=== PATIENT | male | born 1950 | race Caucasian/White ===

== ENCOUNTER 2019-07-31 07:18 | Emergency (ER) | payer OTHER ==
[2019-07-31 07:47] LABS: Absolute Lymphocytes (CBC) 4.3 K/uL (0.7-4.9); Basophils % 0.8 % (0-1.3); Hematocrit 45.2 % (39.6-49.0); RBC Red Blood Cell Count 5.23 M/uL (4.33-5.43)
[2019-07-31] MEDS ORDERED: ONDANSETRON 4 MG/2 ML VIAL ONE (07:50)
[2019-07-31] MEDS ORDERED: MECLIZINE HCL 12.5 MG TAB ONE (07:50)
[2019-07-31 07:59] LABS: Protime INR 1.18
[2019-07-31 08:10] LABS: ALT/SGPT 26 U/L (12-78); AST/SGOT 17 U/L (15-37); Albumin 3.8 g/dL (3.4-5.0); Alkaline Phosphatase 65 U/L (45-117); BUN Blood Urea Nitrogen 17 mg/dL (7-18); Bicarbonate 31 mmol/L (21-32); Bilirubin Direct 0.2 mg/dL (0-0.2); Bilirubin Total 0.8 mg/dL (0.2-1.0); Glucose Level 156 mg/dL (74-106); Magnesium 2.1 mg/dL (1.8-2.4); NT PRO-BNP 44 pg/mL (<125); Potassium 3.9 mmol/L (3.5-5.1); Sodium Level 137 mmol/L (136-145); Troponin (Emerg Dept Use Only) < 0.02 ng/mL (0.0-0.045)
[2019-07-31 08:28] LABS: Blood Morphology Comment NOT SEEN (NOT SEEN); Platelet Estimate ADEQ
--- NOTE | 2019-07-31 08:57 | RAD REPORT ---
EXAM DESCRIPTION: CT - Head Brain Wo Cont - 07/31/2019 8:13 am CLINICAL HISTORY: DIZZINESS Headache, drowsiness, nausea COMPARISON: No comparisons TECHNIQUE: All CT scans are performed using dose optimization technique as appropriate and may inclu de automated exposure control or mA/KV adjustment according to patient size. FINDINGS: No intracranial hemorrhage, hydrocephalus or extra-axial fluid collection.Mild brain atrop hy.No areas of brain edema or evidence of midline shift. The paranasal sinuses and mastoids are clear. The calvarium is intact. IMPRESSION: No acute intracranial abnormality.
--- NOTE | 2019-07-31 09:30 | RAD REPORT ---
EXAM DESCRIPTION: RAD - Chest Single View - 07/31/2019 8:24 am CLINICAL HISTORY: DYSPNEA Chest pain. COMPARISON: CHEST PA AND LAT 2 VIEW dated 05/25/2011; CHEST PA AND LAT 2 VIEW dated 03/27/2008 FINDINGS: Portable technique limits examination quality. The lungs are grossly clear. The heart is mildly prominent size. No displaced fractures. IMPRESSION: No acute intrathoracic process suspected.
--- NOTE | 2019-07-31 09:43 | ER ---
Nurse's Notes [facility] Name: Cesar Watkins Jr Age: 69 yrs Sex: Male : 1950 Arrival Date: 07/31/2019 Time: 07:20 Bed 13 Private MD: Levar Caldwell T Diagnosis: Other peripheral vertigo, right ear Presentation: 07/31 07:28 Presenting complaint: Dizziness and nausea upon waking today. Last known normal was 9pm hb last night. VAN NEGATIVE. Transition of care: patient was not received from another setting of care. Onset of symptoms was July 31, 2019. Risk Assessment: Do you want to hurt yourself or someone else? Patient reports no desire to harm self or others. Initial Sepsis Screen: Does the patient meet any 2 criteria? No. Patient's initial sepsis screen is negative. Does the patient have a suspected source of infection? No. Patient's initial sepsis screen is negative. Care prior to arrival: None. 07:28 Method Of Arrival: Ambulatory hb 07:28 Acuity: TIFFANIE 3 hb Historical: - Allergies: 07:31 No Known Allergies; hb - Home Meds: 07:31 lisinopril 40 mg Oral tab 1 tab once daily [Active]; chlorthalidone Oral [Active]; hb rosuvastatin oral oral [Active]; - PMHx: 07:31 Hypertension; hb - PSHx: 07:31 None; hb - Immunization history:: Adult Immunizations up to date. - Coronavirus screen:: The patient has NOT traveled to [place], [place], or [place] in the past 14 days. The patient has NOT had contact with known/suspected case of Coronavirus? Proceed with normal triage procedures. - Social history:: Smoking status: Patient denies any tobacco usage or history of. - Ebola Screening: : No symptoms or risks identified at this time. Screenin:32 Abuse screen: Denies threats or abuse. Denies injuries from another. Nutritional hb screening: No deficits noted. Tuberculosis screening: No symptoms or risk factors identified. Fall Risk Total Benson Fall Scale indicates Low Risk Score (25-44 pts). Fall prevention measures have been instituted. Side Rails Up X 2 Frequent Obs/Assesments occuring As available Patient and Family Educated on Fall Prevention Program and strategies. Assessment: 07:33 General: Appears in no apparent distress. Behavior is calm, cooperative. Pain: Denies hb pain. Neuro: Level of Consciousness is awake, alert, obeys commands, Oriented to person, place, time, situation, Reports dizziness. Cardiovascular: Heart tones S1 S2 present Capillary refill < 3 seconds Patient's skin is warm and dry. Respiratory: Airway is patent Respiratory effort is even, unlabored, Respiratory pattern is regular, symmetrical, Breath sounds are clear bilaterally. GI: Abdomen is non-distended, Reports nausea. : No signs and/or symptoms were reported regarding the genitourinary system. EENT: No signs and/or symptoms were reported regarding the EENT system. Derm: Skin is pink, warm \T\ dry. Musculoskeletal: No signs and/or symptoms reported regarding the musculoskeletal system. 08:48 Reassessment: Patient appears in no apparent distress at this time. Patient and/or hb family updated on plan of care and expected duration. Pain level reassessed. Patient is alert, oriented x 3, equal unlabored respirations, skin warm/dry/pink. 09:40 Reassessment: Patient appears in no apparent distress at this time. Patient and/or hb family updated on plan of care and expected duration. Pain level reassessed. Patient is alert, oriented x 3, equal unlabored respirations, skin warm/dry/pink. Vital Signs: 07:31 BP 144 / 63; Pulse 49; Resp 16; Temp 97.2; Pulse Ox 96% on R/A; Weight 99.79 kg; Height hb 5 ft. 9 in. (175.26 cm); Pain 0/10; 08:14 BP 126 / 60; Pulse 47; Resp 16; Pulse Ox 98% on R/A; hb 09:40 BP 124 / 55; Pulse 49; Resp 13; Pulse Ox 95% on R/A; Pain 0/10; hb 07:31 Body Mass Index 32.49 (99.79 kg, 175.26 cm) NIH Stroke Scale Scores: 07:56 NIHSS Score: 0 [facility] ED Course: 07:20 Patient arrived in ED. mr 07:20 Levar Caldwell MD is Private Physician. mr 07:23 Rachel Field, RN is Primary Nurse. hb 07:26 [facility]ade [facility]. jr8 07:26 Chilo Caldwell MD is Attending Physician. jr8 07:30 Triage completed. hb 07:31 Arm band placed on. hb 07:32 Patient has correct armband on for positive identification. Bed in low position. Call light in reach. 07:59 Initial lab(s) drawn, by me, sent to lab. Inserted saline lock: 20 gauge in right 5 antecubital area, using aseptic technique. Blood collected. 08:00 quality assurance monitor body on. Pulse ox on. NIBP on. 5 08:00 EKG done, by ED staff, reviewed by Dawson MARQUEZ. 5 08:01 Basic Metabolic Panel Sent. mh5 08:01 LFT's Sent. mh5 08:01 Magnesium Sent. 5 08:01 NT PRO-BNP Sent. 5 08:01 PT-INR Sent. 5 08:02 Troponin (emerg Dept Use Only) Sent. mh5 08:12 CT Head Brain wo Cont In Process Unspecified. EDMS 08:25 XRAY Chest (1 view) In Process Unspecified. EDMS 09:42 Levar Caldwell MD is Referral Physician. jr8 10:05 No provider procedures requiring assistance completed. IV discontinued, intact, hb bleeding controlled, No redness/swelling at site. Pressure dressing applied. Administered Medications: 07:51 Drug: Zofran 4 mg Route: IVP; Site: right antecubital; hb 08:46 Follow up: Response: No adverse reaction hb 08:46 Drug: Meclizine 25 mg Route: PO; hb Point of Care Testing: Blood Glucose: 07:51 Blood Glucose: 175 mg/dL; hb Ranges: Outcome: 09:43 Discharge ordered by . jr8 10:05 Discharged to home ambulatory, with family. hb 10:05 Condition: stable 10:05 Discharge instructions given to patient, family, Instructed on discharge instructions, follow up and referral plans. medication usage, Demonstrated understanding of instructions, follow-up care, medications, Prescriptions given X 2. 10:06 Patient left the ED. hb NIH Stroke Scale - NIH Stroke Score Date: 07/31/2019 Time: 07:56 Total Score = 0 1a. Level of Consciousness (LOC) - 0(Alert) 1b. Level of Consciousness (LOC) (Year \T\ Age) - 0(Both) 1c. LOC Commands (Open \T\ Closes Eyes/User Interface Artist) - 0(Both) 2. Best Gaze (Lateral Gaze Paresis) - 0(Normal) 3. Visual Field Loss - 0(No visual loss) 4. Facial Palsy - 0(Normal) 5a. Left Arm: Motor (10-second hold) - 0(No drift) 5b. Right Arm: Motor (10-second hold) - 0(No drift) 6a. Left Leg: Motor (5-second hold - always test supine) - 0(No drift) 6b. Right Leg: Motor (5-second hold - always test supine) - 0(No drift) 7. Limb Ataxia (finger/nose \T\ heel/benson - test with eyes open) - 0(Absent) 8. Sensory Loss (pinprick arms/legs/face) - 0(Normal) 9. Best Language: Aphasia (description/naming/reading) - 0(No aphasia) 10. Dysarthria (speech clarity - read or repeat words) - 0(Normal) 11. Extinction and Inattention (visual/tactile/auditory/spatial/personal) - 0(No abnormality) Initials: jr8 Signatures: Dispatcher [employer] Madelyn Garzon Josh, PA PA jr8 Rachel Field, JANAE RN Gabrielle Ha [facility]
--- NOTE | 2019-07-31 09:43 | EDPHYS ---
Physician Documentation [facility] Name: Cesar Watkins Jr Age: 69 yrs Sex: Male : 1950 Arrival Date: 07/31/2019 Time: 07:20 Bed 13 Private MD: Levar Caldwell T ED Physician Chilo Caldwell HPI: 07/31 07:55 This 69 yrs old Male presents to ER via Ambulatory with complaints of jr8 Dizziness, Nausea. 07:56 The patient presents with dizziness, sense of spinning. Onset: The symptoms/episode jr8 began/occurred acutely, today, upon awaking. Context: occurred at home, occurred while the patient was asleep. Modifying factors: The symptoms are alleviated by holding head still, lying down, the symptoms are aggravated by movement of head, standing up, changing position. Associated signs and symptoms: Pertinent positives: nausea, vomiting. Severity of symptoms: At their worst the symptoms were moderate in the emergency department the symptoms are unchanged. Patient's baseline: Neuro: alert and fully oriented, Motor: no deficits, Ambulation: walks without assistance, Speech: normal. The patient has not experienced similar symptoms in the past. The patient has not recently seen a physician. Historical: - Allergies: 07:31 No Known Allergies; hb - Home Meds: 07:31 lisinopril 40 mg Oral tab 1 tab once daily [Active]; chlorthalidone Oral [Active]; hb rosuvastatin oral oral [Active]; - PMHx: 07:31 Hypertension; hb - PSHx: 07:31 None; hb - Immunization history:: Adult Immunizations up to date. - Coronavirus screen:: The patient has NOT traveled to [place], [place], or [place] in the past 14 days. The patient has NOT had contact with known/suspected case of Coronavirus? Proceed with normal triage procedures. - Social history:: Smoking status: Patient denies any tobacco usage or history of. - Ebola Screening: : No symptoms or risks identified at this time. ROS: 07:56 Constitutional: Negative for fever, chills, and weight loss. jr8 07:56 Abdomen/GI: Positive for nausea, vomiting, Negative for abdominal pain, diarrhea, constipation, abdominal cramps, abdominal distension. 07:56 Neuro: Positive for dizziness, Negative for altered mental status, headache, hearing loss, loss of consciousness, numbness, seizure activity, speech changes, syncope, near syncope, tingling, tinnitus, tremor, visual changes, weakness. 07:56 All other systems are negative. Exam: 07:56 Eyes: Pupils equal round and reactive to light, extra-ocular motions intact. Lids and jr8 lashes normal. Conjunctiva and sclera are non-icteric and not injected. Cornea within normal limits. Periorbital areas with no swelling, redness, or edema. ENT: Nares patent. No nasal discharge, no septal abnormalities noted. Tympanic membranes are normal and external auditory canals are clear. Oropharynx with no redness, swelling, or masses, exudates, or evidence of obstruction, uvula midline. Mucous membranes moist. Neck: Trachea midline, no thyromegaly or masses palpated, and no cervical lymphadenopathy. Supple, full range of motion without nuchal rigidity, or vertebral point tenderness. No Meningismus. Cardiovascular: Regular rate and rhythm with a normal S1 and S2. No gallops, murmurs, or rubs. Normal PMI, no JVD. No pulse deficits. Respiratory: Lungs have equal breath sounds bilaterally, clear to auscultation and percussion. No rales, rhonchi or wheezes noted. No increased work of breathing, no retractions or nasal flaring. Abdomen/GI: Soft, non-tender, with normal bowel sounds. No distension or tympany. No guarding or rebound. No evidence of tenderness throughout. Back: No spinal tenderness. No costovertebral tenderness. Full range of motion. Skin: Warm, dry with normal turgor. Normal color with no rashes, no lesions, and no evidence of cellulitis. MS/ Extremity: Pulses equal, no cyanosis. Neurovascular intact. Full, normal range of motion. 07:56 Neuro: Orientation: to person, place, time \T\ situation. Mentation: is normal, Memory: is normal, immediate memory is intact, recent memory is intact, remote memory is intact, Cranial nerves: CN I not tested, CN II- XII are normal as tested, visual montemayor are intact. extraocular movements are intact, Facial palsy and sensory deficits are absent. no gross hearing deficit,. right lateral nystagmus, Speech is clear and appropriate. Tongue strength is normal, Cerebellar function: normal finger to nose testing, heel to benson testing is normal, Motor: moves all fours, strength is 5/5 in all extremities, Sensation: no obvious gross deficits, seizure activity, is not displayed by the patient, Abnormal movements: there are no abnormal movements. 08:28 ECG was reviewed by the Attending Physician. kdr Vital Signs: 07:31 BP 144 / 63; Pulse 49; Resp 16; Temp 97.2; Pulse Ox 96% on R/A; Weight 99.79 kg; Height hb 5 ft. 9 in. (175.26 cm); Pain 0/10; 08:14 BP 126 / 60; Pulse 47; Resp 16; Pulse Ox 98% on R/A; hb 09:40 BP 124 / 55; Pulse 49; Resp 13; Pulse Ox 95% on R/A; Pain 0/10; hb 07:31 Body Mass Index 32.49 (99.79 kg, 175.26 cm) hb NIH Stroke Scale Scores: 07:56 NIHSS Score: 0 jr8 MDM: 07:32 Patient medically screened. jr8 09:39 Differential diagnosis: cardiac arrhythmia, CVA, hypovolemia, idiopathic dizziness, jr8 near-syncope, syncope, TIA, vertigo. Data reviewed: vital signs, nurses notes, lab test result(s), EKG, radiologic studies, CT scan, plain films. Data interpreted: Pulse oximetry: on room air is 98 %. Interpretation: normal. Counseling: I had a detailed discussion with the patient and/or guardian regarding: the historical points, exam findings, and any diagnostic results supporting the discharge/admit diagnosis, lab results, radiology results, the need for outpatient follow up, a family practitioner, to return to the emergency department if symptoms worsen or persist or if there are any questions or concerns that arise at home. Response to treatment: the patient's symptoms have markedly improved after treatment. ED course: Patient feeling much better with medication. Able to move more with medication. Patient had typical benign vertigo presentation on physical exam with absence of central findings. Recommend rest with plenty of fluids for next couple of days. If worse to return. Patient good with plan . 07/31 07:32 Order name: Basic Metabolic Panel; Complete Time: 08:14 8 07/31 07:32 Order name: CBC with Diff; Complete Time: 08:29 8 07/31 07:32 Order name: LFT's; Complete Time: 08:14 07/31 07:32 Order name: Magnesium; Complete Time: 08:14 07/31 07:32 Order name: NT PRO-BNP; Complete Time: 08:14 07/31 07:32 Order name: PT-INR; Complete Time: 08:08 07/31 07:32 Order name: Troponin (emerg Dept Use Only); Complete Time: 08:14 07/31 07:32 Order name: XRAY Chest (1 view); Complete Time: 09:35 07/31 07:32 Order name: EKG; Complete Time: 07:33 07/31 07:43 Order name: CT Head Brain wo Cont; Complete Time: 08:59 07/31 08:03 Order name: Glucose, Ancillary Testing; Complete Time: 08:08 EDMS 07/31 08:29 Order name: Manual Differential; Complete Time: 08:29 EDMS 07/31 07:32 Order name: Cardiac monitoring; Complete Time: 07:44 07/31 07:32 Order name: EKG - Nurse/Tech; Complete Time: :07/31 07:32 Order name: IV Saline Lock; Complete Time: :44 07/31 07:32 Order name: Labs collected and sent; Complete Time: :07/31 07:32 Order name: O2 Per Protocol; Complete Time: :07/31 07:32 Order name: O2 Sat Monitoring; Complete Time: :44 07/31 09:07 Order name: EKG Electrocardiogram EDMS EC:28 Rate is 48 beats/min. Rhythm is regular, Sinus bradycardia with No ectopy. QRS [place] is kdr Normal. [place] interval is normal. Clinical impression: NSR w/ Non-specific ST/T Changes and Sinus bradycardia. Administered Medications: 07:51 Drug: Zofran 4 mg Route: IVP; Site: right antecubital; hb 08:46 Follow up: Response: No adverse reaction hb 08:46 Drug: Meclizine 25 mg Route: PO; hb Point of Care Testing: Blood Glucose: 07:51 Blood Glucose: 175 mg/dL; hb Ranges: Critical Glucose Levels:Adult <50 mg/dl or >400 mg/dl <40 mg/dl or >180 mg/dl Disposition: 16:47 Co-signature as Attending Physician, Chilo Caldwell MD I agree with the assessment and kdr plan of care. Disposition: 07/31/19 09:43 Discharged to Home. Impression: Other peripheral vertigo, right ear. - Condition is Stable. - Discharge Instructions: Benign Positional Vertigo. - Prescriptions for Meclizine 25 mg Oral Tablet - take 1 tablet by ORAL route every 8 hours As needed; 30 tablet. Zofran 4 mg Oral Tablet - take 1 tablet by ORAL route every 8 hours As needed; 20 tablet. - Medication Reconciliation Form, Thank You Letter, Antibiotic Education, Prescription Opioid Use form. - Follow up: Levar Caldwell MD; When: 2 - 3 days; Reason: Recheck today's complaints, Continuance of care, Re-evaluation by your physician. - Problem is new. - Symptoms have improved. NIH Stroke Scale - NIH Stroke Score Date: 07/31/2019 Time: 07:56 Total Score = 0 1a. Level of Consciousness (LOC) - 0(Alert) 1b. Level of Consciousness (LOC) (Year \T\ Age) - 0(Both) 1c. LOC Commands (Open \T\ Closes Eyes/Retail Management Trainee) - 0(Both) 2. Best Gaze (Lateral Gaze Paresis) - 0(Normal) 3. Visual Field Loss - 0(No visual loss) 4. Facial Palsy - 0(Normal) 5a. Left Arm: Motor (10-second hold) - 0(No drift) 5b. Right Arm: Motor (10-second hold) - 0(No drift) 6a. Left Leg: Motor (5-second hold - always test supine) - 0(No drift) 6b. Right Leg: Motor (5-second hold - always test supine) - 0(No drift) 7. Limb Ataxia (finger/nose \T\ heel/benson - test with eyes open) - 0(Absent) 8. Sensory Loss (pinprick arms/legs/face) - 0(Normal) 9. Best Language: Aphasia (description/naming/reading) - 0(No aphasia) 10. Dysarthria (speech clarity - read or repeat words) - 0(Normal) 11. Extinction and Inattention (visual/tactile/auditory/spatial/personal) - 0(No abnormality) Initials: jr8 Signatures: Dispatcher [employer] EDMS Chilo Caldwell, MD MD kdr Dawson Cade PA PA jr8 Rachel Field, RN RN hb Corrections: (The following items were deleted from the chart) 10:06 09:43 07/31/2019 09:43 Discharged to Home. Impression: Other peripheral hb vertigo, right ear. Condition is Stable. Forms are Medication Reconciliation Form, Thank You Letter, Antibiotic Education, Prescription Opioid Use. Follow up: Levar Caldwell; When: 2 - 3 days; Reason: Recheck today's complaints, Continuance of care, Re-evaluation by your physician. Problem is new. Symptoms have improved. jr8
[2019-07-31 10:12] VITALS: TEMP 97.2
[2019-07-31 10:15] VITALS: BP 124/55; O2SAT 95
--- NOTE | 2019-07-31 15:55 | EKG ---
Test Date: 2019-07-31 Test Time: 07:51:07 Wreath Maker: JOYCE MEASUREMENT RESULTS: Intervals: Rate: 48 WV: 154 QRSD: 86 QT: 468 QTc: 418 [place]: P: 68 WV: 154 QRS: 51 T: 121 INTERPRETIVE STATEMENTS: Marked sinus bradycardia Possible Left atrial enlargement Septal infarct, age undetermined T wave abnormality, consider lateral ischemia Abnormal ECG Compared to ECG 03/27/2008 12:22:37 T-wave abnormality now present ST (T wave) deviation no longer present Myocardial infarct finding still present Possible ischemia still present Electronically Signed On 07-31-19 15:51:56 BAND TEACHER by Collin Velazquez
--- NOTE | 2019-07-31 15:55 | EKG ---
Test Date: 2019-07-31 Test Time: 07:51:34 Metal Furniture Assembly Supervisor: JOYCE MEASUREMENT RESULTS: Intervals: Rate: 48 FL: 160 QRSD: 86 QT: 446 QTc: 398 [place]: P: 71 FL: 160 QRS: 48 T: 97 INTERPRETIVE STATEMENTS: Marked sinus bradycardia Septal infarct, age undetermined T wave abnormality, consider lateral ischemia Abnormal ECG Compared to ECG 07/31/2019 07:51:07 No significant changes Electronically Signed On 07-31-19 15:51:55 ARMED SECURITY GUARD by Collin Velazquez
== END 2019-07-31 10:06 | disposition home or self-care (01) ==
LOC: ER 07:18
DX: H81.391 Other peripheral vertigo, right ear (principal); I10 Essential (primary) hypertension
CPT/HCPCS: 93005 ×2; 85025; 80048; 36415; 83735; 85610; 82947; 80076; 84484; 83880; 70450; 71045; 96374; 99285; J2405; J8597

== ENCOUNTER 2021-05-10 19:52 | Emergency (ER) | payer OTHER ==
[2021-05-10 20:21] LABS: Absolute Lymphocytes (CBC) 5.1 K/uL (0.7-4.9); Hematocrit 50.7 % (39.6-49.0); Lymphocytes % 15.5 % (15.3-44.8); MPV 10.5 fL (7.6-11.3)
[2021-05-10 20:30] LABS: Protime INR 1.23
[2021-05-10] MEDS ORDERED: CEFTRIAXONE 1000 MG/VIAL ONE (20:38)
[2021-05-10 20:46] LABS: ALT/SGPT 31 U/L (12-78); AST/SGOT 17 U/L (15-37); Albumin 4.1 g/dL (3.4-5.0); Alkaline Phosphatase 82 U/L (45-117); BUN Blood Urea Nitrogen 61 mg/dL (7-18); Bicarbonate 15 mmol/L (21-32); Bilirubin Direct 0.5 mg/dL (0-0.2); Bilirubin Total 1.2 mg/dL (0.2-1.0); Glucose Level 1539 mg/dL (74-106); Magnesium 3.3 mg/dL (1.8-2.4); NT PRO-BNP 643 pg/mL (<125); Potassium 5.1 mmol/L (3.5-5.1); Protein, Total 7.4 g/dL (6.4-8.2); Sodium Level 122 mmol/L (136-145); Troponin (Emerg Dept Use Only) < 0.02 ng/mL (0.0-0.045)
[2021-05-10 20:56] LABS: Blood Morphology Comment NOT SEEN (NOT SEEN); Platelet Estimate ADEQ
[2021-05-10] MEDS ORDERED: INSULIN -REGULAR HUMAN 50 UNIT/0.5 ML ML ONE ×2 (21:06→21:51)
--- NOTE | 2021-05-10 21:08 | RAD REPORT ---
EXAM DESCRIPTION: [place] Single View05/10/2021 8:58 pm CLINICAL HISTORY: Weakness COMPARISON: 2019 FINDINGS: The lungs appear clear of acute infiltrate. The heart is normal size IMPRESSION: No acute abnormalities displayed
[2021-05-10 21:13] LABS: Urine Blood 3+ (Negative); Urine Glucose 2+ (Negative); Urine Protein Negative (Negative); Urine pH 5.5 (5.0-7.0)
--- NOTE | 2021-05-10 21:45 | RAD REPORT ---
EXAM DESCRIPTION: CT - Head C Spine Cap Wo Con - 05/10/2021 9:23 pm TECHNIQUE: Computed axial tomography of the head and cervical spine was obtained. Coronal and sagitt al reconstruction was performed Computed axial tomography of the chest, abdomen and pelvis was obtained. Contrast was not requested. All CT scans are performed using dose optimization technique as appropriate and may include automated exposure control or mA/KV adjustment according to patient size. CLINICAL HISTORY: Head and neck injury with chest and abdominal pain status post fall COMPARISON: CT head 2019 FINDINGS: An intracranial bleed is not seen. The ventricles are normal in caliber. An extra-axial fluid collection is not noted. . Fluid within the sinuses/mastoids is not seen. A cervical fracture is not seen. No dislocation is noted. The evaluation of mediastinum, akira, vessels, solid organs and bowel are limited secondary to the lac k of contrast administration. A mediastinal hematoma is not noted. A pleural effusion is not seen. A lung contusion is not present. The liver,spleen, pancreas, adrenals,kidneys and bladder do not demonstrate intrahepatic injury. 9 centimeter cystic mass abuts the left lobe of the liver. Additional small hepatic and renal cystic masses. . Small inguinal hernias IMPRESSION: 1. No acute intracranial abnormality is seen. 2. A cervical fracture is not visualized. If the patient continues have symptoms to suggest intracran ial/spinal cord pathology MRI be recommended 3. No traumatic abnormality involving the chest/abdomen/pelvis. 4. 9 centimeter cystic mass abuts the left lobe of the liver. Ultrasound is recommended
[2021-05-10 21:48] LABS: Blood O2 Saturation 92.6 % (92-98.5)
[2021-05-10 21:49] LABS: Arterial Blood Carboxyhemoglob 1.3 % (0-1.5); Blood Gas Oxyhemoglobin 90.2 % (94-97)
[2021-05-10] MEDS ORDERED: NA CHLORIDE 0.9% 100 ML ONE (21:52)
--- NOTE | 2021-05-10 22:02 | ER ---
Nurse's Notes [facility] Name: Cesar Watkins Jr Age: 70 yrs Sex: Male : 1950 Arrival Date: 05/10/2021 Time: 19:57 Bed 20 Private MD: Diagnosis: Diabetic ketoacidosis;Acute kidney injury Presentation: 05/10 20:11 Chief complaint: EMS states: called out for fall and generalized weakness, on scene pt em was orthostatic positive and BGL read HIGH, pt also reports falling and hitting head, was given 400 mL NS on scene, initiated 20 G RAC, BGL read HIGH on arrival. Coronavirus screen: Client denies travel out of the [place] in the last 14 days. Ebola Screen: Patient negative for fever greater than or equal to 101.5 degrees Fahrenheit, and additional compatible Ebola Virus Disease symptoms Patient denies exposure to infectious person. Patient denies travel to an Ebola-affected area in the 21 days before illness onset. No symptoms or risks identified at this time. Initial Sepsis Screen: Does the patient meet any 2 criteria? No. Patient's initial sepsis screen is negative. Does the patient have a suspected source of infection? No. Patient's initial sepsis screen is negative. Risk Assessment: Do you want to hurt yourself or someone else? Patient reports no desire to harm self or others. Onset of symptoms was May 10, 2021. 20:11 Method Of Arrival: EMS: [facility] em 20:11 Acuity: TIFFANIE 3 em Historical: - Allergies: 20:17 No Known Allergies; em - Home Meds: 20:16 rosuvastatin Oral [Active]; lisinopril 40 mg Oral tab 1 tab once daily [Active]; em Chlorthalidone Oral [Active]; - PMHx: 20:16 Hypertension; em - PSHx: 20:16 None; em - Immunization history:: Adult Immunizations up to date, Client reports receiving the 2nd dose of the Covid vaccine. - Social history:: Smoking status: Patient denies any tobacco usage or history of. Screenin:11 Abuse screen: Denies threats or abuse. Nutritional screening: No deficits noted. em Tuberculosis screening: No symptoms or risk factors identified. Fall Risk Fall in past 12 months (25 points). IV access (20 points). Ambulatory Aid- Crutches/Cane/Walker (15 pts). Total Benson Fall Scale indicates High Risk Score (45 or more points). Side Rails Up X 2 Placed Close to Nursing Station Frequent Obs/Assessments Occuring Family Present and informed to notify staff if the need to leave the bedside. Assessment: 21:07 General: Appears in no apparent distress. comfortable, well groomed, well developed, em well nourished, Behavior is calm, cooperative, quiet. Pain: Complains of pain in abdomen Pain currently is 3 out of 10 on a pain scale. Neuro: Level of Consciousness is awake, alert, obeys commands, Oriented to person, place, time, situation, Transportation Aid are equal bilaterally Full function Speech is normal. Cardiovascular: Capillary refill < 3 seconds Patient's skin is warm and dry. Rhythm is sinus rhythm. Respiratory: Airway is patent Respiratory effort is even, unlabored, Respiratory pattern is regular, symmetrical. GI: Reports nausea. Derm: Skin is intact, is healthy with good turgor, Skin is pink, warm \\T\\ dry. Musculoskeletal: Capillary refill < 3 seconds, Range of motion: intact in all extremities. 21:10 Reassessment: Patient appears in no apparent distress at this time. No changes from previously documented assessment. Patient is alert, oriented x 3, equal unlabored respirations, skin warm/dry/pink. 22:25 Reassessment: report given to JANAE Garcia at [facility], pending EMS transportation. em 23:03 Reassessment: report given to [facility] Juvenile Justice Officer, will transport pt to [facility], pt resting comfortably with eyes closed, respirations even and unlabored, skin pink warm and dry. Vital Signs: 20:11 BP 117 / 43; Pulse 90; Resp 18; Temp 97.8(A); Pulse Ox 100% on R/A; Weight 96.16 kg; em Height 5 ft. 9 in. (175.26 cm); 21:24 BP 121 / 48; Pulse 81; Resp 16; Pulse Ox 99% on R/A; em 22:24 BP 115 / 45; Pulse 81; Resp 20; Temp 97.9; Pulse Ox 97% on R/A; em 23:05 BP 126 / 56; Pulse 81; Resp 16; Pulse Ox 97% on R/A; em 20:11 Body Mass Index 31.31 (96.16 kg, 175.26 cm) em ED Course: 19:57 Patient arrived in ED. tt3 19:57 Luis Enrique Dial PA is PHCP. [facility] 19:57 Mario Browning MD is Attending Physician. jmm 20:11 Patient has correct armband on for positive identification. Bed in low position. Call em light in reach. Side rails up X2. Adult w/ patient. desk monitor on. Pulse ox on. NIBP on. 20:11 Maintain EMS IV. Dressing intact. Good blood return noted. Site clean \\T\\ dry. Gauge \\T\\ em site: 20 RAC. 20:16 Triage completed. em 20:16 Arm band placed on. em 20:58 XRAY Chest (1 view) In Process Unspecified. EDMS 21:10 Shawn Jerome, RN is Primary Nurse. em 21:15 SARS-COV-2 RT PCR (Document "Date of Onset" if Symptomatic) Sent. oe 21:23 CT Traumagram (Head C Spine CAP wo con) In Process Unspecified. EDMS 21:41 Initiated transfer at [facility] with Merari Ross. Stated she would do a capacity check tt3 and call back. 21:49 Merari called back with their physician to speak with JIMMY Peterson, pt provider tt3 regarding the transfer request. 21:56 Merari Cody gave admin approval. The pt is going to [facility]. tt3 The accepting physician is Dr. Garcia. Nurse to call report to . Face sheet to be faxed to per Merari's request. 22:10 Repeat lab(s) drawn. by ms, sent to lab. Inserted saline lock: 22 gauge in left em antecubital area, using aseptic technique. Blood collected. 23:03 No provider procedures requiring assistance completed. Patient transferred, IV remains em in place. Administered Medications: 20:19 Drug: NS 0.9% 1000 ml Route: IV; Rate: 1 bolus; Site: right antecubital; em 21:02 Follow up: IV Status: Completed infusion; IV Intake: 1000ml em 20:56 Drug: Rocephin (cefTRIAXone) 2 grams Route: IV; Rate: calculated rate; Site: right em antecubital; 21:11 Follow up: Response: No adverse reaction; IV Status: Completed infusion em 21:10 Drug: Insulin Regular Human 10 units {Co-Signature: vg1 (Beata Nichols RN).} Route: em IVP; Site: right antecubital; 22:13 Follow up: Response: No adverse reaction em 21:58 Drug: Insulin Drip - (Insulin Regular Human 100 units, NS 0.9% 100 ml) {Co-Signature: em mw (Elisha Gonzalez RN).} Route: IV; Rate: calculated rate; Site: right antecubital; 23:02 Follow up: IV Status: Infusion continued upon transfer; IV Intake: 7ml em 22:39 Drug: NS 0.9% 1000 ml Route: IV; Rate: 1 bolus; Site: left antecubital; em 23:02 Follow up: IV Status: Infusion continued upon transfer; IV Intake: 400ml em Intake: 21:02 IV: 1000ml; Total: 1000ml. em 23:02 IV: 7ml; Total: 1007ml. em 23:02 IV: 400ml; Total: 1407ml. em Output: 22:10 Urine: 400ml (Voided); Total: 400ml. em Outcome: 22:00 ER care complete, transfer ordered by . artis 23:04 Transferred by ground EMS to [facility], Transfer form em completed. X-rays sent w/ patient. 23:04 Condition: stable 23:04 Instructed on the need for transfer, Demonstrated understanding of instructions. 23:09 Patient left the ED. em Signatures: Dispatcher [employer] EDLuis Enrique Johns PA PA jmm Munoz, Edgar, RN RN em Kev Renteria Tyler tt3 Beata Nichols RN vg1 Elisha Gonzalez RN mw
--- NOTE | 2021-05-10 22:02 | EDPHYS ---
Physician Documentation [facility] Name: Cesar Watkins Jr Age: 70 yrs Sex: Male : 1950 Arrival Date: 05/10/2021 Time: 19:57 Bed 20 Private MD: ED Physician Mario Browning HPI: 05/10 21:57 This 70 yrs old Male presents to ER via EMS with complaints of vomiting, fall.jmm 21:57 The patient presents to the emergency department with nausea, vomiting. Onset: The jmm symptoms/episode began/occurred gradually, 1 week(s) ago. Possible causes: unknown. The symptoms are aggravated by nothing. The symptoms are alleviated by nothing. This is a 70-year-old male with history of hypertension the presents emerged department with complaints of dry mouth beginning approximately 1 week ago with generalized weakness soon after and multiple episodes of vomiting over the past few days. Patient denies chest pain, abdominal pain, diarrhea.. Historical: - Allergies: 20:17 No Known Allergies; em - Home Meds: 20:16 rosuvastatin Oral [Active]; lisinopril 40 mg Oral tab 1 tab once daily [Active]; em Chlorthalidone Oral [Active]; - PMHx: 20:16 Hypertension; em - PSHx: 20:16 None; em - Immunization history:: Adult Immunizations up to date, Client reports receiving the 2nd dose of the Covid vaccine. - Social history:: Smoking status: Patient denies any tobacco usage or history of. ROS: 21:57 Cardiovascular: Negative for chest pain, palpitations, and edema, Respiratory: Negative jmm for shortness of breath, cough, wheezing, and pleuritic chest pain. 21:57 Constitutional: Positive for fatigue. 21:57 Abdomen/GI: Positive for vomiting. 21:57 All other systems are negative. Exam: 21:57 Head/Face: atraumatic. Eyes: EOMI, no conjunctival erythema appreciated ENT: Moist jmm Mucus Membranes Neck: Trachea midline, Supple Chest/axilla: Normal chest wall appearance and motion. Cardiovascular: Regular rate and rhythm. No edema appreciated Respiratory: Normal respirations, no respiratory distress appreciated 21:57 Skin: General appearance color normal 21:57 Constitutional: The patient appears alert, awake, uncomfortable. 21:57 Abdomen/GI: Inspection: abdomen appears normal, Bowel sounds: normal, Palpation: soft, nontender, in all quadrants. 21:57 Musculoskeletal/extremity: ROM: intact in all extremities. 21:57 Skin: Appearance: Color: normal in color. 21:57 Neuro: Motor: is normal. 21:57 Psych: Behavior/mood is pleasant, cooperative. Vital Signs: 20:11 BP 117 / 43; Pulse 90; Resp 18; Temp 97.8(A); Pulse Ox 100% on R/A; Weight 96.16 kg; em Height 5 ft. 9 in. (175.26 cm); 21:24 BP 121 / 48; Pulse 81; Resp 16; Pulse Ox 99% on R/A; em 22:24 BP 115 / 45; Pulse 81; Resp 20; Temp 97.9; Pulse Ox 97% on R/A; em 23:05 BP 126 / 56; Pulse 81; Resp 16; Pulse Ox 97% on R/A; em 20:11 Body Mass Index 31.31 (96.16 kg, 175.26 cm) em MDM: 19:57 Patient medically screened. [facility] 21:59 Data reviewed: vital signs, nurses notes. Counseling: I had a detailed discussion with [facility] the patient and/or guardian regarding: the historical points, exam findings, and any diagnostic results supporting the discharge/admit diagnosis, lab results, radiology results, the need to transfer to another facility. ED course: Patient has a request for [facility]. I discussed the patient with Dr. Garcia whom accepted the patient. 05/10 19:58 Order name: Basic Metabolic Panel [facility] 05/10 19:58 Order name: CBC with Diff [facility] 05/10 19:58 Order name: LFT's [facility] 05/10 19:58 Order name: Magnesium; Complete Time: 21:02 [facility] 05/10 19:58 Order name: NT PRO-BNP; Complete Time: 21:02 [facility] 05/10 19:58 Order name: PT-INR; Complete Time: 20:47 [facility] 05/10 19:58 Order name: Troponin (emerg Dept Use Only); Complete Time: 21:02 [facility] 05/10 19:58 Order name: ABG; Complete Time: 21:50 [facility] 05/10 19:58 Order name: Basic Metabolic Panel; Complete Time: 21:02 [facility] 05/10 19:58 Order name: CBC with Automated Diff; Complete Time: 21:02 [facility] 05/10 19:58 Order name: Liver (Hepatic) Function; Complete Time: 21:02 [facility] 05/10 20:14 Order name: Glucose, Ancillary Testing; Complete Time: 20:28 [facility] 05/10 20:25 Order name: Procalcitonin; Complete Time: 20:54 [facility] 05/10 19:58 Order name: XRAY Chest (1 view); Complete Time: 21:12 [facility] 05/10 19:58 Order name: EKG; Complete Time: 19:59 [facility] 05/10 19:58 Order name: Cardiac monitoring; Complete Time: 20:18 [facility] 05/10 20:25 Order name: Lactate; Complete Time: 21:21 [facility] 05/10 20:25 Order name: Blood Culture Adult (2) [facility] 05/10 20:25 Order name: Manual Differential; Complete Time: 21:02 [facility] 05/10 20:29 Order name: SARS-COV-2 RT PCR (Document "Date of Onset" if Symptomatic) [facility] 05/10 20:29 Order name: SARS-COV-2 RT PCR; Complete Time: 22:01 [facility] 05/10 21:05 Order name: CT Traumagram (Head C Spine CAP wo con); Complete Time: 21:48 [facility] 05/10 21:13 Order name: Urine Dipstick-Ancillary [facility] 05/10 22:09 Order name: Glucose; Complete Time: 23:02 05/10 19:58 Order name: EKG - Nurse/Tech; Complete Time: 20:18 [facility] 05/10 19:58 Order name: IV Saline Lock; Complete Time: 20:18 [facility] 05/10 19:58 Order name: Labs collected and sent; Complete Time: 20:18 [facility] 05/10 19:58 Order name: O2 Per Protocol; Complete Time: 20:18 [facility] 05/10 19:58 Order name: O2 Sat Monitoring; Complete Time: 20:18 [facility] 05/10 19:58 Order name: Urine Dipstick-Ancillary (obtain specimen); Complete Time: 21:14 [facility] Administered Medications: 20:19 Drug: NS 0.9% 1000 ml Route: IV; Rate: 1 bolus; Site: right antecubital; em 21:02 Follow up: IV Status: Completed infusion; IV Intake: 1000ml em 20:56 Drug: Rocephin (cefTRIAXone) 2 grams Route: IV; Rate: calculated rate; Site: right em antecubital; 21:11 Follow up: Response: No adverse reaction; IV Status: Completed infusion em 21:10 Drug: Insulin Regular Human 10 units {Co-Signature: vg1 (Beata Nichols RN).} Route: em IVP; Site: right antecubital; 22:13 Follow up: Response: No adverse reaction em 21:58 Drug: Insulin Drip - (Insulin Regular Human 100 units, NS 0.9% 100 ml) {Co-Signature: em mw (Elisha Gonzalez RN).} Route: IV; Rate: calculated rate; Site: right antecubital; 23:02 Follow up: IV Status: Infusion continued upon transfer; IV Intake: 7ml em 22:39 Drug: NS 0.9% 1000 ml Route: IV; Rate: 1 bolus; Site: left antecubital; em 23:02 Follow up: IV Status: Infusion continued upon transfer; IV Intake: 400ml em Disposition: 05/11 01:15 Co-signature as Attending Physician, Mario Browning MD. mh7 Disposition Summary: 05/10/21 22:00 Transfer Ordered Transfer Location: [facility] Reason: Higher level of care jm Condition: Stable jm Problem: new jmm Symptoms: are unchanged jmm Accepting Physician: Dr. Garcia(05/10/21 23:09) em Diagnosis - Diabetic ketoacidosis jmm - Acute kidney injury [facility] Forms: - Medication Reconciliation Form jmm - SBAR form [facility] Signatures: Dispatcher [employer] EDMS Luis Enrique Dial PA PA jmm Shawn Jerome, RN RN em Mario Browning MD MD mh7 Beata Nichols RN vg1 Elisha Gonzalez RN mw Corrections: (The following items were deleted from the chart) 05/10 21:15 19:59 SARS-COV-2 RT PCR+[id number].[id number] ordered. EDMS EDMS 22:01 22:00 Dr. Jose wisdom jenn 23:09 22:01 Dr. Jose wisdom em
[2021-05-10] MEDS ORDERED: NA CHLORIDE 0.9% 1,000 ML ONE (22:36)
[2021-05-10 23:17] VITALS: TEMP 97.9; O2SAT 97
[2021-05-10 23:18] VITALS: BP 126/56
--- NOTE | 2021-05-11 18:25 | EKG ---
Test Date: 2021-05-10 Test Time: 20:13:19 Engineer Steam: RAFAEL MEASUREMENT RESULTS: Intervals: Rate: 82 AK: 134 QRSD: 90 QT: 444 QTc: 518 [place]: P: 55 AK: 134 QRS: 56 T: 72 INTERPRETIVE STATEMENTS: Normal sinus rhythm with sinus arrhythmia Marked ST abnormality, possible inferior subendocardial injury Prolonged QT Abnormal ECG Compared to ECG 07/31/2019 07:51:34 ST (T wave) deviation now present Prolonged QT interval now present Sinus bradycardia no longer present Myocardial infarct finding no longer present T-wave abnormality no longer present Possible ischemia no longer present Electronically Signed On 05-11-21 18:23:31 SAT INSTRUCTOR by Collin Velazquez
--- OUTSIDE RECORDS SUMMARY | 2021-05-16 15:59 | XMS REPORT | Continuity of Care Document ---
:1950 Author Organization [facility] t Address [address] [place] [address] Care Team Providers Name Role Phone MARVIN BURGOS Primary Care Physician Unavailable DURGA Attending Clinician Unavailable Kalen BOLDEN Attending Clinician Unavailable Only, Test Attending Clinician Unavailable Bo VICTOR Attending Clinician BO Attending Clinician Unavailable CELESTINE Admitting Clinician Unavailable Payers Payer Name Policy Type Policy Number Effective Date Expiration Date S carmenza [employer] MANAGED [id number] 2020 MEDICARE PPO-AJ 00:00:00 Problems This patient has no known problems. Allergies, Adverse Reactions, Alerts Allergy Allergy Status Severity Reaction(s) Onset Inactive Treating Comm ents Source Name Type Date Date Clinician NO KNOWN Drug [facility] Social History Social Habit Start Date Stop Date Quantity Comments Source [facility] to SARS-CoV-2 [facility] sure [facility] [place] [facility] Smoking Status Start Date Stop Date Source Unknown if ever smoked [facility] Medications This patient has no known medications. Procedures This patient has no known procedures. Encounters Start End Encounter Admission Attending Care Care Encounter Source Date/Time Date/Time Type Type Clinicians Facility Department ID 2021-05-11 Inpatient U DURGA [facility] [id number] [facility] 00:16:00 TANIA [facility] 2020-10-09 2020-10-09 Outpatient Miguel BOLDEN [facility] [id number] Univers 13:30:00 13:30:00 VITO [facility] 2020-09-17 2020-09-17 Outpatient Miguel BOLDEN [facility] [id number] Univers 13:30:00 13:30:00 [facility] 2020-06-11 2020-06-11 Laboratory Only, Adc Test [facility] [id number] Univers 13:07:45 13:22:45 Only Arsalan Gill [id number] roshni [facility] [id number] [facility] [id number] [address] 2020-06-11 2020-06-11 Outpatient R BO [facility] [id number] [facility] 13:15:00 13:15:00 ARSALAN barakat [facility] Results This patient has no known results.
== END 2021-05-10 23:09 | disposition short-term general hospital (02) ==
LOC: ER 19:52
DX: E11.10 Type 2 diabetes mellitus with ketoacidosis without coma (principal); N17.9 Acute kidney failure, unspecified; I10 Essential (primary) hypertension; Z20.822 Contact with and (suspected) exposure to COVID-19
CPT/HCPCS: 96365; 96361; 93005; 87040 ×2; 85025; 80048; 36415; 83735; 82947 ×2; 87205; 85610; 80076; 83605; 81003; 84484; 84145; 83880; 70450; 71250; 72125; 71045; 82805; 96375; 99285; U0003; J7030